=== PATIENT | male | born 1965 | race Caucasian/White ===

== ENCOUNTER 2020-07-25 13:35 | Emergency (ER) | payer MEDICAID, OTHER ==
[~2020-07-25] VITALS: Ht 180.3 cm; Wt 97.1 kg
[2020-07-25] MEDS ORDERED: MECLIZINE 25MG TABLET PO ONE (15:00)
[2020-07-25] MEDS ORDERED: LACTATED RINGERS 1,000 ML IV STA (15:02)
[2020-07-25] MEDS ORDERED: KETOROLAC 30MG/ML VIAL IV ONE (15:15)
[2020-07-25 15:25] LABS: BASOPHILS % 0.4 % (0.0-2.0); EOSINOPHILS % 0.9 % (0.0-5.0); HEMATOCRIT. 48.4 % (42.0-52.0); HEMOGLOBIN. 16.4 g/dL (14.0-18.0); LYMPHOCYTES % 26.5 % (20.0-50.0); MEAN CORPUSCULAR HEMOGLOBIN 31.6 pg (28.0-32.0); MEAN CORPUSCULAR VOLUME 92.9 fL (80.0-94.0); MEAN PLATELET VOLUME 11.6 fl (7.4-10.4); MONOCYTES % 7.1 % (2.0-8.0); NEUTROPHILS % 65.1 % (40.0-76.0); PLATELET 188 x1000/uL (130-400); RED BLOOD CELL COUNT 5.21 mill/uL (4.7-6.1); RED CELL DISTRIBUTION WIDTH 13.7 % (11.6-14.6)
[2020-07-25 15:33] LABS: CHLORIDE 105 mEq/L (98-107); PROTHROMBIN TIME 10.4 sec (9.6-11.0)
[2020-07-25 16:11] LABS: CLARITY URINE CLEAR (CLEAR); COLOR URINE YELLOW (YELLOW); KETONES URINE NEGATIVE (NEGATIVE); LEUKOCYTE ESTERASE URINE NEGATIVE (NEGATIVE); NITRITE URINE NEGATIVE (NEGATIVE); OCCULT BLOOD URINE NEGATIVE (NEGATIVE); PH URINE 7.5 (4.5-8.0); PROTEIN URINE NEGATIVE (NEGATIVE); SPECIFIC GRAVITY URINE 1.009 (1.005-1.030); UROBILINOGEN URINE 0.2 E.U./dL (0.2-1.0)
[2020-07-25 16:23] VITALS: BP 133/86
== END 2020-07-25 16:31 | disposition home or self-care (01) ==
LOC: ER 13:35
DX: R42 Dizziness and giddiness (principal); R51.9 Headache, unspecified; E78.00 Pure hypercholesterolemia, unspecified; Z88.0 Allergy status to penicillin
CPT/HCPCS: 36415; 70450; 80053; 81003; 82962; 85025; 85610; 93005; 96374; 99284; J1885; J7120; J8597